=== PATIENT | female | born 1965 | race Caucasian/White ===

== ENCOUNTER 2018-10-16 18:56 | Inpatient (IN) ==
[2018-10-16 19:36] LABS: Pregnancy Test, Urine Negative (Negative)
[2018-10-16 19:39] LABS: Appearance Urine Clear (Clear); Bacteria Urine Automated Negative (Negative); Bilirubin Urine Negative (Negative); Blood Urine Negative (Negative); Cast Urine Automated 0 /lpf (0-5); Color Urine Yellow; Glucose Urine UA Negative (Negative); Ketones Urine Negative (Negative); Leukocyte Esterase Urine Trace (Negative); Nitrite Urine Negative (Negative); Protein Urine Negative (Negative); RBC Urine Automated 0-4 /hpf (0-4); Specific Gravity Urine 1.012 (1.000-1.030); Urobilinogen Urine Negative (Negative)
[2018-10-16 20:00] LABS: Basophils # (auto) 0.03 K/uL (0-0.2); Basophils % (auto) 0.4 %; Eosinophils # (auto) 0.06 K/uL (0-0.5); Eosinophils % (auto) 0.8 %; Hematocrit (blood only) 40.1 % (37-47); Hemoglobin 13.6 g/dL (12.0-16.0); Immature Granulocytes # (auto) 0.02 K/uL (0.00-0.02); Immature Granulocytes % (auto) 0.3 %; Lymphocytes % (auto) 49.1 %; Mean Corpuscular Hgb Conc 33.9 g/dL (32-36); Mean Corpuscular Volume 93.3 fL (80-100); Mean Platelet Volume 8.9 fL (7.4-10.4); Monocytes # (auto) 0.33 K/uL (0.11-0.59); Monocytes % (auto) 4.2 %; Neutrophils % (auto) 45.2 %; Platelet Count 401 K/uL (130-400); RDW Coefficient of Variation 12.8 % (11.5-14.5); RDW Standard Deviation 42.9 fL (36.4-46.3); White Blood Count 7.94 K/uL (4.8-10.8)
[2018-10-16 20:08] LABS: Amphetamines+Metham, Urine Neg (Neg); Barbiturates, Urine Neg (Neg); Benzodiazepine, Urine Neg (Neg); Cocaine, Urine Neg (Neg); MDMA (Ecstacy), Urine Neg (Neg); Methadone, Urine Neg (Neg); Opiate, Urine Neg (Neg); Phencyclidine, Urine Neg (Neg)
[2018-10-16 20:17] LABS: Albumin Level 4.3 gm/dl (3.4-5.0); BUN Creatinine Ratio 11.1 (10-20); Calcium 9.4 mg/dl (8.5-10.1); Creatinine Clr Calc Pharmacy 75.3 ml/min; Est GFR (African American) 96.9; Est GFR (Non-African American) 83.6
[2018-10-16 20:27] LABS: Albumin Globulin Ratio 1.1 (0.9-2); Bilirubin,Total 0.2 mg/dl (0.2-1); Total Protein 8.3 gm/dl (6.4-8.2)
[2018-10-16 20:53] LABS: Acetaminophen < 2 ug/ml (10-30); Salicylate < 1.7 mg/dl (2.8-20)
--- NOTE | 2018-10-16 23:25 | Emergency Department Note ---
Entered by Edna Laguna acting as a scribe for History of Present Illness General Chief Complaint: Mental Health Evaluation Stated Complaint: MHID, Time Seen by Provider: 10/16/18 19:03 Source: patient Mode of arrival: EMS Limitations: no limitations History of Present Illness Provider complaint: suicidal ideation Onset (ago): hour(s) (today) Duration: intermittent History of same: Yes (09/13/18) Exacerbated By: + alcohol Associated psychiatric symptoms: + depression; no homicidal ideation, no auditory hallucinations and no visual hallucinations Associated symptoms: + insomnia and + other (loss of appetite); no nausea and no vomiting If self harm: + admits thoughts of self harm and + has plan; no has acted on plan The patient is a 53 year old female with a past medical history of depression who presents to the Emergency Room with complaints of an intermittent suicidal ideation that got acutely worse today. The patient states that she does have a history of the same and explains that she tried to hang herself early last month. She notes that she was at a counseling appointment today where she made a comment that she has been having thoughts of cutting her wrists and that she "would rather not worry about anything." She reports that she did drink half a bottle of vodka today and admits to this exacerbating her thoughts. She states that this amount of alcohol is unusual for her. The patient also denies any HI or AVH. She notes that she has been unable to sleep and has had a loss of appetite but denies any nausea, vomiting or abdominal pain. She also denies any tobacco use. The patient denies overdosing on any of her medications or missing any doses. She denies having any access to guns. Home Medications Home Medications Medication Instructions Recorded Confirmed Type escitalopram oxalate 10 mg PO DAILY 10/16/18 10/16/18 History zolpidem 10 mg PO HS 10/16/18 10/16/18 History Past Med/Surg History Medical History Depression Social History Current Living Situation: Family Feels Safe at Home: Yes Smoking Status: Never smoker Hx Alcohol Use: Yes Review of Systems See HPI for pertinent positives & negatives. and A total of 10 systems reviewed and were otherwise negative Physical Exam Vital Signs Vital Signs - 24 hr 10/16/18 19:04 10/16/18 20:08 Temperature 36.8 C Temperature Source Oral Sepsis Recent Fever Within 48 Hours No Sepsis New/Unexplained Change in Mental Status No Sepsis Action Taken by Nursing No Action Required Pulse Rate 113 H Pulse Rate [Left Finger] 106 H Pulse Rhythm Regular Pulse Strength Normal Respiratory Rate 18 16 Respiratory Effort / Characteristics Non-Labored Non-Labored Spontaneous Respiratory Depth Normal Normal Respiratory Pattern Regular Regular Blood Pressure 125/74 Blood Pressure [Left Arm] 118/70 Blood Pressure Mean 91 Blood Pressure Mean [Left Arm] 86 Blood Pressure Position Lying Pulse Oximetry 95 97 Oxygen Delivery Method Room Air Room Air GENERAL: Well appearing, well nourished, NAD, non-toxic. EYE EXAM: Normal conjunctiva. PERRL, no anisocoria and EOM's grossly intact w/o pain. OROPHARYNX: Moist MM. NECK: Supple, no nuchal rigidity, no adenopathy, non-tender. No signs of meningismus. LUNGS: Clear to auscultation. Normal chest wall mechanics. HEART: NSR, no MRG. ABDOMEN: Abdomen soft, non-tender, normo-active bowel sounds, no masses, no rebound or guarding. BACK: No CVA TTP. SKIN: No rashes and no bruising. UPPER EXTREMITIES: Upper extremities are grossly normal. LOWER EXTREMITIES: No pitting edema. No calf pain. NEURO EXAM: A and O x3. GCS 15. Moves all 4 extremities on command w/o issue. PSYCH: Positive SI, no HI or AVH. Depressed mood. Course 1916: The patient was evaluated in room A5, and a complete history and physical examination were performed. 2109: Psych will be evaluating the patient. 2224: The patient was signed-out to Dr. Doll at the change of shifts. Administered Medications Medical Decision Making Home Medications Current Medication List: was personally reviewed by me Laboratory Data Attestation: I reviewed the patient's lab results. Result diagrams: 10/16/18 19:46 10/16/18 19:46 Lab Results 10/16/18 10/16/18 10/16/18 Range/Units 19:15 19:15 19:15 WBC (4.8-10.8) K/uL RBC (4.2-5.4) M/uL Hgb (12.0-16.0) g/dL Hct (37-47) % MCV (80-100) fL MCH (25-34) pg MCHC (32-36) g/dL RDW Std Deviation (36.4-46.3) fL RDW Coeff of Farhat (11.5-14.5) % Plt Count (130-400) K/uL MPV (7.4-10.4) fL Immature Gran % (Auto) % Neut % (Auto) % Lymph % (Auto) % Mcdonald % (Auto) % Eos % (Auto) % Baso % (Auto) % Immature Gran # (Auto) (0.00-0.02) K/uL Neut # (Auto) (1.4-6.5) K/uL Lymph # (Auto) (1.2-3.4) K/uL Mcdonald # (Auto) (0.11-0.59) K/uL Eos # (Auto) (0-0.5) K/uL Baso # (Auto) (0-0.2) K/uL Sodium (136-145) mmol/L Potassium (3.5-5.1) mmol/L Chloride (98-107) mmol/L Carbon Dioxide (21-32) mmol/L Anion Gap (3-11) BUN (7-18) mg/dl Creatinine (0.6-1.2) mg/dl Est Cr Clr Drug Dosing ml/min Est GFR ( Amer) Est GFR (Non-Af Amer) BUN/Creatinine Ratio (10-20) Glucose (70-99) mg/dl Calcium (8.5-10.1) mg/dl Total Bilirubin (0.2-1) mg/dl AST (15-37) U/L ALT (12-78) U/L Alkaline Phosphatase (45-117) U/L Total Protein (6.4-8.2) gm/dl Albumin (3.4-5.0) gm/dl Globulin (2.5-4.0) gm/dl Albumin/Globulin Ratio (0.9-2) TSH (0.300-4.500) uIu/ml Urine Color Yellow Urine Appearance Clear (Clear) Urine pH 5.0 (4.5-7.5) Ur Specific Haswell 1.012 (1.000-1.030) Urine Protein Negative (Negative) Urine Glucose (UA) Negative (Negative) Urine Ketones Negative (Negative) Urine Blood Negative (Negative) Urine Nitrite Negative (Negative) Urine Bilirubin Negative (Negative) Urine Urobilinogen Negative (Negative) Ur Leukocyte Esterase Trace H (Negative) Urine WBC (Auto) 1-5 (0-5) /hpf Urine RBC (Auto) 0-4 (0-4) /hpf U Hyaline Cast (Auto) 0 (0-5) /lpf U Epithel Cells (Auto) 10-20 H (0-5) /lpf Urine Bacteria (Auto) Negative (Negative) Urine Test Negative (Negative) Salicylates (2.8-20) mg/dl Urine Opiates Screen Neg (Neg) Ur Methadone, Qual Neg (Neg) Acetaminophen (10-30) ug/ml Urine Barbiturates Neg (Neg) Ur Phencyclidine (PCP) Neg (Neg) U Amphetamin/Meth Scrn Neg (Neg) MDMA (Ecstasy) Screen Neg (Neg) U Benzodiazepines Scrn Neg (Neg) Ur Cocaine Metabolite Neg (Neg) U Marijuana (THC) Screen Neg (Neg) Ethyl Alcohol mg/dL (0-3) mg/dl 10/16/18 10/16/18 10/16/18 Range/Units 19:46 19:46 19:46 WBC 7.94 (4.8-10.8) K/uL RBC 4.30 (4.2-5.4) M/uL Hgb 13.6 (12.0-16.0) g/dL Hct 40.1 (37-47) % MCV 93.3 (80-100) fL MCH 31.6 (25-34) pg MCHC 33.9 (32-36) g/dL RDW Std Deviation 42.9 (36.4-46.3) fL RDW Coeff of Farhat 12.8 (11.5-14.5) % Plt Count 401 H (130-400) K/uL MPV 8.9 (7.4-10.4) fL Immature Gran % (Auto) 0.3 % Neut % (Auto) 45.2 % Lymph % (Auto) 49.1 % Mcdonald % (Auto) 4.2 % Eos % (Auto) 0.8 % Baso % (Auto) 0.4 % Immature Gran # (Auto) 0.02 (0.00-0.02) K/uL Neut # (Auto) 3.60 (1.4-6.5) K/uL Lymph # (Auto) 3.90 H (1.2-3.4) K/uL Mcdonald # (Auto) 0.33 (0.11-0.59) K/uL Eos # (Auto) 0.06 (0-0.5) K/uL Baso # (Auto) 0.03 (0-0.2) K/uL Sodium 144 (136-145) mmol/L Potassium 4.0 (3.5-5.1) mmol/L Chloride 112 H (98-107) mmol/L Carbon Dioxide 24 (21-32) mmol/L Anion Gap 8.0 (3-11) BUN 9 (7-18) mg/dl Creatinine 0.80 (0.6-1.2) mg/dl Est Cr Clr Drug Dosing 75.3 ml/min Est GFR ( Amer) 96.9 Est GFR (Non-Af Amer) 83.6 BUN/Creatinine Ratio 11.1 (10-20) Glucose 93 (70-99) mg/dl Calcium 9.4 (8.5-10.1) mg/dl Total Bilirubin 0.2 (0.2-1) mg/dl AST 32 (15-37) U/L ALT 48 (12-78) U/L Alkaline Phosphatase 85 (45-117) U/L Total Protein 8.3 H (6.4-8.2) gm/dl Albumin 4.3 (3.4-5.0) gm/dl Globulin 4.0 (2.5-4.0) gm/dl Albumin/Globulin Ratio 1.1 (0.9-2) TSH 0.837 (0.300-4.500) uIu/ml Urine Color Urine Appearance (Clear) Urine pH (4.5-7.5) Ur Specific [place] (1.000-1.030) Urine Protein (Negative) Urine Glucose (UA) (Negative) Urine Ketones (Negative) Urine Blood (Negative) Urine Nitrite (Negative) Urine Bilirubin (Negative) Urine Urobilinogen (Negative) Ur Leukocyte Esterase (Negative) Urine WBC (Auto) (0-5) /hpf Urine RBC (Auto) (0-4) /hpf U Hyaline Cast (Auto) (0-5) /lpf U Epithel Cells (Auto) (0-5) /lpf Urine Bacteria (Auto) (Negative) Urine Test (Negative) Salicylates < 1.7 L (2.8-20) mg/dl Urine Opiates Screen (Neg) Ur Methadone, Qual (Neg) Acetaminophen < 2 L (10-30) ug/ml Urine Barbiturates (Neg) Ur Phencyclidine (PCP) (Neg) U Amphetamin/Meth Scrn (Neg) MDMA (Ecstasy) Screen (Neg) U Benzodiazepines Scrn (Neg) Ur Cocaine Metabolite (Neg) U Marijuana (THC) Screen (Neg) Ethyl Alcohol mg/dL (0-3) mg/dl 10/16/18 Range/Units 19:46 WBC (4.8-10.8) K/uL RBC (4.2-5.4) M/uL Hgb (12.0-16.0) g/dL Hct (37-47) % MCV (80-100) fL MCH (25-34) pg MCHC (32-36) g/dL RDW Std Deviation (36.4-46.3) fL RDW Coeff of Farhat (11.5-14.5) % Plt Count (130-400) K/uL MPV (7.4-10.4) fL Immature Gran % (Auto) % Neut % (Auto) % Lymph % (Auto) % Mcdonald % (Auto) % Eos % (Auto) % Baso % (Auto) % Immature Gran # (Auto) (0.00-0.02) K/uL Neut # (Auto) (1.4-6.5) K/uL Lymph # (Auto) (1.2-3.4) K/uL Mcdonald # (Auto) (0.11-0.59) K/uL Eos # (Auto) (0-0.5) K/uL Baso # (Auto) (0-0.2) K/uL Sodium (136-145) mmol/L Potassium (3.5-5.1) mmol/L Chloride (98-107) mmol/L Carbon Dioxide (21-32) mmol/L Anion Gap (3-11) BUN (7-18) mg/dl Creatinine (0.6-1.2) mg/dl Est Cr Clr Drug Dosing ml/min Est GFR ( Amer) Est GFR (Non-Af Amer) BUN/Creatinine Ratio (10-20) Glucose (70-99) mg/dl Calcium (8.5-10.1) mg/dl Total Bilirubin (0.2-1) mg/dl AST (15-37) U/L ALT (12-78) U/L Alkaline Phosphatase (45-117) U/L Total Protein (6.4-8.2) gm/dl Albumin (3.4-5.0) gm/dl Globulin (2.5-4.0) gm/dl Albumin/Globulin Ratio (0.9-2) TSH (0.300-4.500) uIu/ml Urine Color Urine Appearance (Clear) Urine pH (4.5-7.5) Ur Specific [place] (1.000-1.030) Urine Protein (Negative) Urine Glucose (UA) (Negative) Urine Ketones (Negative) Urine Blood (Negative) Urine Nitrite (Negative) Urine Bilirubin (Negative) Urine Urobilinogen (Negative) Ur Leukocyte Esterase (Negative) Urine WBC (Auto) (0-5) /hpf Urine RBC (Auto) (0-4) /hpf U Hyaline Cast (Auto) (0-5) /lpf U Epithel Cells (Auto) (0-5) /lpf Urine Bacteria (Auto) (Negative) Urine Test (Negative) Salicylates (2.8-20) mg/dl Urine Opiates Screen (Neg) Ur Methadone, Qual (Neg) Acetaminophen (10-30) ug/ml Urine Barbiturates (Neg) Ur Phencyclidine (PCP) (Neg) U Amphetamin/Meth Scrn (Neg) MDMA (Ecstasy) Screen (Neg) U Benzodiazepines Scrn (Neg) Ur Cocaine Metabolite (Neg) U Marijuana (THC) Screen (Neg) Ethyl Alcohol mg/dL 153.3 H (0-3) mg/dl Blood Pressure Blood Pressure Findings: Normal blood pressure Blood Pressure Disposition: did not require urgent referral MDM Narrative The patient is a 53 year old female with a past medical history of depression who presents to the Emergency Room with complaints of an intermittent suicidal ideation that got acutely worse today. Differential diagnosis includes: mood disorder, infection, hypoglycemia, electrolyte abnormalities, cardiac sources, intracerebral event, toxicologic, neurologic, as well as others. Patient presented with suicidal ideation while she had the patient does have a prior history of a recent attempted hanging. Patient is no longer employed. The patient has had worsening depression without any changes in medications and states she has been compliant with her meds. Patient denies taking prescribed medications or [id number] type medications in large quantities or not as prescribed. Patient denies HI or AVH. The patient did have blood work completed patient was subsequently deemed clinically sober and was seen by the psych case filler. The patient is currently a 201 but there is a 302 petition pending if the patient does try to leave. I did sign out the patient to the evening physician Dr. Doll pending psychiatric placement. Impression & Plan Depression with suicidal ideation, Alcohol cessation counseling Discharge Plan Visit Data Chief Complaint: Mental Health Evaluation Stated Complaint: MHID, ED Provider: Stevenson Galeano Discharge Problem: Depression with suicidal ideation, Alcohol cessation counseling Forms Stand Alone Forms: My [facility] Prescriptions Prescriptions: No Action zolpidem 10 mg tablet 10 mg PO HS RF: 0 escitalopram oxalate 10 mg tablet 10 mg PO DAILY RF: 0 The scribe's documentation has been prepared under my direction and personally reviewed by me in its entirety. I confirm that the note above accurately reflects all work, treatment, procedures, and medical decision making performed by me.
[2018-10-17] MEDS ORDERED: ZOLPIDEM TARTRATE 10 MG TAB PO STA (01:02)
--- NOTE | 2018-10-17 01:10 | Emergency Department Note ---
ED Visit Note I received this patient in signout at the change of shift from Dr. Stevenson Galeano. She was accepted to [facility] for inpatient psychiatric management. Patient requested her evening dose of Ambien 10 mg which was administered prior to her going upstairs. Please refer to Dr. Galeano's notes for further details of the history, physical and visit. .
[2018-10-17] MEDS ORDERED: BISMUTH SUBSALICYLATE PER ML OMNICELL CHARGE PO PRN (01:43)
[2018-10-17] MEDS ORDERED: ALUMINUM/MAGNESIUM SUSP 30 ML UDC PO PRN (01:43)
[2018-10-17] MEDS ORDERED: SODIUM CHLORIDE 0.65% NA SOLN 45 ML (OCEAN) PRN (01:43)
[2018-10-17] MEDS ORDERED: MAGNESIUM HYDROXIDE SUSP 30 ML UDC PO PRN (01:43)
[2018-10-17] MEDS ORDERED: ESCITALOPRAM OXALATE 10 MG TAB PO SCH (09:00)
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
[2018-10-17] MEDS ORDERED: SERTRALINE HCL 50 MG TABLET PO ONE (14:00)
[2018-10-18] MEDS: ACETAMINOPHEN 325 MG TAB PO PRN ×3 (01:02→19:48)
[2018-10-18] MEDS: SERTRALINE HCL 50 MG TABLET PO SCH (08:53)
--- NOTE | 2018-10-18 09:57 | Psychiatric Progress Note ---
Date of Service October 18, 2018 Impression / Recommendations Impression Patient reports mild improvement in mood since yesterday. She denies any specific concerns as far as side effects from initiation of sertraline. The patient does admit that she has not slept well and is continuing to struggle with her insomnia. We discussed trial of hydroxyzine dosing as needed tonight. She admits to trials of several other sleep aids, not finding any effective. Recommending CBTI to address her concerns regarding sleep. We will provide information for [facility], which has several providers to offer this service. Patient was encouraged to put her mental and physical health as a priority, and based on conversation today is motivated to do this. The patient denies active suicidality, improvement in mood has not been significant. She did complete a family meeting with her mother today, whom she will be living with after discharge. Patient 72-hour notice is up on 10/20 and she does not desire to rescind at this time. Given limited change in mood, recent reported suicide attempt, and the additional stressor of her moved from [place] to [place], patient continues to be at high risk of harm to self if discharged without adequate medication of risk factors or safety planning. Second attempt made today to contact patient's outpatient prescriber regarding overuse of zolpidem in combination with alcohol use. Received office's answering system which does not allow for messages to be left. (1) Depression with suicidal ideation: 10/17 - Patient reports at least 5 year history of depressive symptoms, managed by PCP, has never seen a psychiatrist. Had had trials of duloxetine and escitalopram, and would like to try something else. Discussed trial of sertraline, including review of risks, benefits, and possible side effects. Reviewed what to expect if it is working, and recommendations for therapy and referral for psychiatric care. She has applied for MA which will help with access to care. - Coordinate care with therapist. - Discontinue zolpidem - trial hydroxyzine and increase to 100mg as patient reports 50mg was poorly effective. She would benefit from sleep CBT. Coordinate care with Dr. Khoury, her PCP, as he is prescribing the zolpidem and should be aware of her drinking and overuse of the medication- called his office, which is apparently closed today, and was unable to leave a message. - The differential includes cluster B personality traits; get collateral information. - Encourage group attendance and participation. Work on healthy coping skills and a discharge safety plan. - Family meeting with parents and son, who is coming to town on Sunday. - Continue inpatient treatment; every 15 minute checks for safety. Patient has submitted a 72-hour notice, but is motivated to participate in treatment, and hopefully can be stabilized and discharged in that timeframe. 10/18 - Continue sertraline at 50mg for tomorrow morning, can titrate as tolerated - Family meeting with mother today, reportedly went well - Reviewed information about CBTI provided resources and contact for [facility] psychotherapy (2) Substance abuse: 10/17 - Abusing alcohol and zolpidem, will discontinue zolpidem and inform prescribing physician due to risk of overusing it, mixing with alcohol, as well as patient's report it was ineffective. - Brief intervention was offered and accepted Intervention was greater than 5 min in length. Brief interventions include: 1. Assess Readiness to Quit, 2. Advise: Help Patient to Reduce or Abstain from Alcohol, 3. Agree: Set Specific, Feasible Goals, 4. Assist: Anticipate barriers, Problem-Solving Solutions. Social work to 5. Arrange: Referrals to appropriate treatment. Summary of intervention: The patient is in precontemplation stage with regards to transtheoretical model of change. The patient is advised to decrease alcohol consumption due to depressant effects and risk of interactions with prescription medications. The patient agreed to cut back and not drink while depressed, and will be provided with recovery materials to continue to education self on how to cope with their condition without drinking. 10/18 -Additional attempts made today to contact patient's prescriber of zolpidem. Unable to leave message with the office. Inventory Assets Strengths: supportive family, willing for treatment Needs: abstinence from substances,, healthy coping skills, OP psychiatry Risk Factors Assessment Male: No : Yes Do You Have Access To A Gun?: No Health Problems: Yes Mental Health Diagnoses: Yes Substance Use Disorders: Yes Previous Attempt: Yes Previous Attempt; Highly Lethal: No Family History of Suicide: No Previous Psychiatric Hospitalization: No Hopelessness: No Smoker: No Protective Factors Assessment Mormon Beliefs: No : No Responsible for Young Children: No Employed: No (Unable to maintain employment due to depression) Stable Relationships: No Supportive Family: Yes Good Rapport with Provider: Yes Interval History Chief Complaint "Things are ok. Even though I'm tired, it's better than yesterday". Review of Systems Notes Constitutional: Reports excessive fatigue today Cardiovascular: denied Respiratory: denied Gastrointestinal: denied Neurological: denied Psychiatric: denies symptoms other than stated above Total of at least 10 systems reviewed, pertinent positives as above and in HPI. Sleep Information Total Hours of Sleep: 2.75 Meal Information Percent Meal Consumed - Breakfast: 90 Percent Meal Consumed - Lunch: 80 Percent Meal Consumed - Dinner: 50 Subjective Subjective Patient was seen & assessed and interval progress reviewed with Treatment Team. Staff reports the patient has been actively engaged in treatment on the unit. Patient required both doses of hydroxyzine at 100 mg last evening, and is still reported to have not slept well. Family meeting with her mother happened this morning. Patient is seen today to assess progress since admission. The patient shares with this provider that she did not sleep well last evening and is therefore tired today. She explains to this provider why her Ambien was held, and appears to understand that she was misusing the medication. She does admit that no medications have been successful at addressing her insomnia. We reviewed yesterday's recommendation from Dr. Delgadillo regarding cognitive behavioral therapy to target her insomnia. A specific resource will be provided to her to explore, as the program averages 6 sessions and she could remain with her current therapist to discuss her mental health concerns. Patient reports her mood is neutral saying "I am not sad or mad, I did say about a 6." She felt her meeting this morning went well, and has no concerns regarding moving in with her mother after she is able to obtain her belongings in [place]. The patient does admit that she feels a bit lost as her family dynamics are changing. She states, "all I have known as being a mother, and now my sons are growing up and wanting to explore their relationships." She does appear to be understanding of this, and is motivated to find ways to cope with this changing situation. Patient denies suicidality today, though admits there has not been a significant change in her mood. Physical Exam Psychiatric Orientation: alert, oriented x 3 and cooperative Apperance: appropriately dressed, appropriately groomed and appeared stated age Eye Contact: good eye contact Motor Behavior: steady gait and station and no abnormal motor movements Speech: normal rate/rhythm/volume of speech Affect: + anxious affect (mildly anxious) "not sad or mad, I'd say neutral. Not happy but better than yesterday." Thought Process: goal directed thought process and clear/coherent thought process Thought Content: reality based without delusions Suicidal Thoughts: denies suicidal thoughts Homicidal Thoughts: denies homicidal thoughts Cognition: recent memory grossly intact, remote memory grossly intact, attention grossly intact and language grossly intact Estimated Intelligence: average estimated intelligence Insight: + fair insight Judgement: + fair judgement Vital Signs (Past 24 Hours) Last Vital Signs Temp 36.7 C 10/18/18 06:00 Pulse 102 H 10/18/18 06:00 Resp 18 10/18/18 06:00 BP 126/73 10/18/18 06:00 Pulse Ox 99 10/17/18 01:51 Results & Data Current Inpatient Medications Current Inpatient Medications: Current Inpatient Medications Acetaminophen (Tylenol) 650 mg PO Q4H PRN PRN Reason: Headache or Minor Fever Stop: 11/16/18 01:42 Last Admin: 10/18/18 08:55 Dose: 650 mg Documented by: Al Hydrox/Mg Hydrox/Simethicone (Maalox) 30 ml PO Q4H PRN PRN Reason: GI Upset Stop: 11/16/18 01:42 Bismuth Subsalicylate (Kaopectate) 15 ml PO PRN PRN PRN Reason: Loose Stool Stop: 11/16/18 01:42 Hydroxyzine HCl (Vistaril) 25 mg PO Q4H PRN PRN Reason: Anxiety Stop: 11/16/18 01:42 Hydroxyzine HCl (Vistaril) 100 mg PO HSZ PRN PRN Reason: Insomnia Stop: 11/16/18 01:42 Last Admin: 10/18/18 01:03 Dose: 100 mg Documented by: Magnesium Hydroxide (Milk Of Magnesia) 30 ml PO DAILY PRN PRN Reason: Heartburn Stop: 11/16/18 01:42 Sertraline HCl (Zoloft) 50 mg PO QAM DAYAN Stop: 11/17/18 08:59 Last Admin: 10/18/18 08:53 Dose: 50 mg Documented by: Sodium Chloride ([place] Nasal) 1 - 2 sprays NA PRN PRN PRN Reason: Nasal Dryness/Congestion Stop: 11/16/18 01:42 Post Discharge Appointments Primary Care Physician Name Of Family Doctor: Dr. Dillon Khoury [facility] Name of Therapist: Guillermina Becerra's Office Date of Therapist Appointment: 10/30/18 [employer] Supervisor Name of [employer] Supervisor: None CPT Code CPT Code 84686
[2018-10-19] MEDS: ACETAMINOPHEN 325 MG TAB PO PRN (05:02)
[2018-10-19] MEDS: SERTRALINE HCL 50 MG TABLET PO SCH (08:58)
--- NOTE | 2018-10-19 10:10 | Psychiatric Progress Note ---
Date of Service October 19, 2018 Impression / Recommendations Impression Patient demonstrating improving hopefulness and absence of any recurrence of suicidal intentions. She seems to be minimizing psychiatric concerns today. Her 72-hour notice will come due tomorrow morning at 0745. As she has no minute plan or intent for self-harm, has demonstrated good behavioral control on the unit, and affect brightening, she does not meet involuntary commitment criteria and absence of imminent risk and will likely be discharged tomorrow. The patient was willing to rescind her 72-hour notice to accommodate a later discharge time tomorrow such that we could trial an alternative medication for sleep tonight as below. (1) Depression with suicidal ideation: 10/17 - Patient reports at least 5 year history of depressive symptoms, managed by PCP, has never seen a psychiatrist. Had had trials of duloxetine and escitalopram, and would like to try something else. Discussed trial of sertraline, including review of risks, benefits, and possible side effects. Reviewed what to expect if it is working, and recommendations for therapy and referral for psychiatric care. She has applied for MA which will help with access to care. - Coordinate care with therapist. - Discontinue zolpidem - trial hydroxyzine and increase to 100mg as patient reports 50mg was poorly effective. She would benefit from sleep CBT. Coordinate care with Dr. Khoury, her PCP, as he is prescribing the zolpidem and should be aware of her drinking and overuse of the medication- called his office, which is apparently closed today, and was unable to leave a message. - The differential includes cluster B personality traits; get collateral information. - Encourage group attendance and participation. Work on healthy coping skills and a discharge safety plan. - Family meeting with parents and son, who is coming to [facility] on Sunday. - Continue inpatient treatment; every 15 minute checks for safety. Patient has submitted a 72-hour notice, but is motivated to participate in treatment, and hopefully can be stabilized and discharged in that timeframe. 10/18 - Continue sertraline at 50mg for tomorrow morning, can titrate as tolerated - Family meeting with mother today, reportedly went well - Reviewed information about CBTI provided resources and contact for [facility] psychotherapy 10/19 -Start Remeron 15 mg p.o. nightly for mood augmentation, anxiolysis, and sleep benefit. Common risks and benefits reviewed including risk for appetite stimulation, dizziness, drowsiness. -Patient will rescind 72-hour notice but with plan to discharge tomorrow pending no problematic changes in clinical status -Patient does not have an appointment date with outpatient psychiatry however referral has been placed. We will request social work, at a minimum, try to obtain an appointment with PCP as she will require medication follow-up (2) Substance abuse: 10/17 - Abusing alcohol and zolpidem, will discontinue zolpidem and inform prescribing physician due to risk of overusing it, mixing with alcohol, as well as patient's report it was ineffective. - Brief intervention was offered and accepted Intervention was greater than 5 min in length. Brief interventions include: 1. Assess Readiness to Quit, 2. Advise: Help Patient to Reduce or Abstain from Alcohol, 3. Agree: Set Specific, Feasible Goals, 4. Assist: Anticipate barriers, Problem-Solving Solutions. Social work to 5. Arrange: Referrals to appropriate treatment. Summary of intervention: The patient is in precontemplation stage with regards to transtheoretical model of change. The patient is advised to decrease alcohol consumption due to depressant effects and risk of interactions with prescription medications. The patient agreed to cut back and not drink while depressed, and will be provided with recovery materials to continue to education self on how to cope with their condition without drinking. 10/18 -Additional attempts made today to contact patient's prescriber of zolpidem. Unable to leave message with the office. 10/19 -Again reviewed with patient that continued use of zolpidem is not recommended. Risks reviewed. Hopefully her sleep will respond to the Remeron as above. Also discussed consideration for short-term Seroquel trial however she can explore that potential option with her outpatient provider Inventory Assets Strengths: supportive family, willing for treatment Needs: abstinence from substances,, healthy coping skills, OP psychiatry Risk Factors Assessment Male: No : Yes Do You Have Access To A Gun?: No Health Problems: Yes Mental Health Diagnoses: Yes Substance Use Disorders: Yes Previous Attempt: Yes Previous Attempt; Highly Lethal: No Family History of Suicide: No Previous Psychiatric Hospitalization: No Hopelessness: No Smoker: No Protective Factors Assessment Islam Beliefs: No : No Responsible for Young Children: No Employed: No (Unable to maintain employment due to depression) Stable Relationships: No Supportive Family: Yes Good Rapport with Provider: Yes Interval History Chief Complaint "I am really feeling more hopeful". Review of Systems Sleep Information Total Hours of Sleep: 0.75 Meal Information Percent Meal Consumed - Breakfast: 50 Percent Meal Consumed - Lunch: 25 Percent Meal Consumed - Dinner: 90 denies constipation, dry mouth Subjective Subjective Patient was seen & assessed and interval progress reviewed with Treatment Team. Per staff, patient had a good day on the unit yesterday. Family meeting with her mother went well and her mother reportedly denied safety concerns and considering pending discharge from the behavioral health unit. She has been compliant with medication. She has not endorsed any continued suicidal ideation or intent here on the unit. She continues to complain of very poor sleep and a total of 200 mg of hydroxyzine last night was well tolerated but ineffective. She reports insomnia relatively persistently for several years. Has tried Belsomra and trazodone previously with PCP. She acknowledges overusing the Ambien but reports she had historically given the medication to her son to give to her and that system was more viable. She describes this seemingly suggesting that she could have her mother dispense the medication to her at home to reduce risk for overuse. She minimizes alcohol use and tells me that previous history in the record was incorrect and that she typically drinks only small quantities of alcohol perhaps monthly. Presently she reports difficult emotional adjustment to her youngest son's increased distance from her as he pursues a relationship. She states that she has always been very close to him and tells me that she made the suicidal threat "kind of to make him feel bad because I felt so hurt." She acknowledges the suicide attempt in September in [place] but characterizes it as something that she knew would fail as she tried to hang herself on a plastic plant hook. She does agree that the behavior is still concerning and evidences significant emotional duress. Presently she denies any continued thoughts or plans to harm herself or anyone else. She describes improving future orientation and hopes that she can feel good about being there to help her mother. The chronic pain that has limited her work is also a target of intervention and she reportedly has a rheumatology consultation pending from her PCP. She remains eager for discharge and her 72-hour notice will come due tomorrow morning at 07 45. Physical Exam Psychiatric Orientation: alert, oriented x 3 and cooperative Apperance: appropriately dressed and appropriately groomed Eye Contact: good eye contact Motor Behavior: steady gait and station and no abnormal motor movements Speech: no pressured speech (but hyperverbal at times) Affect: + anxious affect (mild); no tearful affect and no labile affect Mood: no depressed mood ("I'm hopeful") Thought Process: goal directed thought process Thought Content: reality based without delusions (minimizing) Suicidal Thoughts: denies suicidal thoughts, denies suicidal plan and denies s uicidal intent Homicidal Thoughts: denies homicidal thoughts Hallucinations: no auditory hallucinations, no visual hallucinations and no tactile hallucinations Cognition: recent memory grossly intact and remote memory grossly intact Estimated Intelligence: average estimated intelligence Insight: + fair insight Judgement: + fair judgement Vital Signs (Past 24 Hours) Last Vital Signs Temp 36.3 C L 10/19/18 06:45 Pulse 108 H 10/19/18 06:46 Resp 18 10/19/18 06:45 BP 112/78 10/19/18 06:46 Pulse Ox 99 10/17/18 01:51 Results & Data Current Inpatient Medications Current Inpatient Medications: Current Inpatient Medications Acetaminophen (Tylenol) 650 mg PO Q4H PRN PRN Reason: Headache or Minor Fever Stop: 11/16/18 01:42 Last Admin: 10/19/18 05:02 Dose: 650 mg Documented by: Al Hydrox/Mg Hydrox/Simethicone (Maalox) 30 ml PO Q4H PRN PRN Reason: GI Upset Stop: 11/16/18 01:42 Bismuth Subsalicylate (Kaopectate) 15 ml PO PRN PRN PRN Reason: Loose Stool Stop: 11/16/18 01:42 Hydroxyzine HCl (Vistaril) 25 mg PO Q4H PRN PRN Reason: Anxiety Stop: 11/16/18 01:42 Hydroxyzine HCl (Vistaril) 100 mg PO HSZ PRN PRN Reason: Insomnia Stop: 11/16/18 01:42 Last Admin: 10/18/18 23:25 Dose: 100 mg Documented by: Magnesium Hydroxide (Milk Of Magnesia) 30 ml PO DAILY PRN PRN Reason: Heartburn Stop: 11/16/18 01:42 Sertraline HCl (Zoloft) 50 mg PO QAM DAYAN Stop: 11/17/18 08:59 Last Admin: 10/19/18 08:58 Dose: 50 mg Documented by: Sodium Chloride ([place] Nasal) 1 - 2 sprays NA PRN PRN PRN Reason: Nasal Dryness/Congestion Stop: 11/16/18 01:42 Post Discharge Appointments Primary Care Physician Name Of Family Doctor: Dr. Dillon Khoury - follow up as needed Primary Care Provider Appointment Comment: [address] [place] [address] Psychiatrist Name of Psychiatrist: [facility] - referral faxed on 10/18 Psychiatrist's Psychiatric Appointment Comment: [address] [place] [address] Therapist Name of Therapist: Mary Anne Becerra PhD, [facility] Therapist's Date of Therapist Appointment: 10/30/18 Therapy Appointment Comment: [address] [place] [address] Public Defender Name of Public Defender: None Contact Information Discharge Discharge [address]: [address] [place] [address] [facility] [place] [address] CPT Code CPT Code 27336
[2018-10-19] MEDS ORDERED: MIRTAZAPINE TAB 15 MG TAB PO SCH (22:00)
[2018-10-20] MEDS: ACETAMINOPHEN 325 MG TAB PO PRN (05:03)
--- NOTE | 2018-10-20 08:49 | Discharge Summary ---
Date of Service October 20, 2018 History of Present Illness Patient presented to the ER 10/16/2018 via EMS with alcohol intoxication (BAL 153) and suicidal ideation. She reported worsening depression and worsening of suicidal ideation, which she had disclosed to her therapist, who referred her to the hospital. She reported an attempt to hang herself on 09/13/2018 with a phone cord, and thoughts of cutting her wrists. She reported drinking a half bottle of vodka prior to presentation, and said when she drinks, the suicidal thoughts get worse. Prior to coming into the hospital, she had picked up a knife, but then gave it to her mother and asked her to take it away from her. She also disclosed her suicidal thoughts to her son, who lives in [place], and either her son or mother called crisis. She was monitored in the ER until sober, and at that point admitted that she had been thinking of using razor blades to slice her wrists. Stressors include in the process of moving from [place] where her children are too [place] to live with her elderly parents. She admitted to attempting suicide on 09/13/2018, using a phone discharge rn cord as a noose. She wrapped it around her neck, stood on a table, and hooked the cord to the ceiling. She reported severe insomnia, for which she has been on zolpidem for years, taking up to 4-5 tabs at night without benefit. Although she has been advised to get a psychiatrist, she has not done so. She signed in voluntarily, but then submitted a 72-hour notice, stating she wanted to be discharged by Sunday because her son is coming up from [place]. She had been living in [place] with HER-2 sons and their girlfriends, but the house they were renting was sold and they had to move, so her sons asked her to move back to [place] to be with her parents. Her dog also in June 2018, which was difficult for her. She endorses feeling lonely and a lack of meaning in her life. She has been prescribed escitalopram and zolpidem by Dr. Dillon Khoury in [place], but does not feel that the escitalopram is helpful. On my assessment, the patient reports she has a history of depression since 2016, treated by a PCP, and has been depressed, "very sad," for the past month or so, and "I half attempted suicide last month in [place]." She describes the above event where she tried to hang herself with a phone discharge rn cord, which occurred when she was undergoing problems with her housing situation in [place], [place]. The house she and her 2 sons and their girlfriends were living in was going to be sold, and she was "so hurt" and upset when her youngest son and his girlfriend decided they wanted to get their own place, as "they know I can't afford it, and I can't work because of my pain." She was upset they "didn't think of me," and they had an argument about it. 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 She admits she had been drinking. She stood on a table, put the cord around her neck, and hung it to a hook in the ceiling. She stepped off the table, and "the ceiling fell through." She fell to the ground, and then sent a text to her older son, who came out and called 911. EMS came and took her to the ER, where she saw a psychiatrist, and was discharged home, as she refused inpatient treatment. Her sons drove her to [place] to live with her mother the next day, and she got a primary care doctor who started escitalopram, and she started therapy. She previously lived in [place] and saw the same PCP who prescribed duloxetine in the past. She was discussing this event with her therapist yesterday, and told her she'd had thoughts of ending her life, and "mentioned a razor." She denies that she had any intent to act on these thoughts, but says her therapist told her she should see a psychiatrist and get her medications adjusted. She then told her son about it on the phone last night, "and he and my mother got upset, and decided to call crisis." Mood has been "sad" for months, at least since Apr., "started getting the blues," and worsened when her dog in Jun. and then housing issues last month. Chronic pain is another exacerbating factor. She says she drinks "socially," but admits to drinking excessively at times. She denies manic, psychotic, PTSD, OCD, FRACISCO and panic symptoms. Physical Exam Psychiatric Orientation: alert, oriented x 3 and cooperative Apperance: appropriately dressed, appropriately groomed and appeared stated age Eye Contact: good eye contact Motor Behavior: steady gait and station; n tremor Speech: normal rate/rhythm/volume of speech Affect: euthymic affect Mood: no depressed mood (describes mood as "really good") Thought Process: goal directed thought process and linear/logical thought process Thought Content: reality based without delusions Suicidal Thoughts: denies suicidal thoughts, denies suicidal plan and denies suicidal intent Homicidal Thoughts: denies homicidal thoughts, denies homicidal plan and denies homicidal intent Hallucinations: no auditory hallucinations and no visual hallucinations Cognition: recent memory grossly intact and remote memory grossly intact Estimated Intelligence: average estimated intelligence Insight: + fair insight Judgement: + fair judgement Vital Signs (Past 24 Hours) Last Vital Signs Temp 36.7 C 10/20/18 06:35 Pulse 92 H 10/20/18 06:36 Resp 16 10/20/18 06:35 BP 122/86 10/20/18 06:36 Pulse Ox 99 10/17/18 01:51 Principal Diagnosis MDD, rec, severe, without psychosis; Alcohol/Sedative Hypnotic use disorder Psychiatric Data Day of Discharge Assessment On day of discharge patient reports that she finally slept perhaps 6 hours last evening with first dose of mirtazapine which was well tolerated. She denies dizziness or any concern for side effects so far this morning. With good sleep comes improved hopefulness. She denies any recurrence of suicidal thinking or wish. She denies thoughts of harm to anyone else. She is able to convincingly contract for safety and feels ready for discharge as we had planned today. She commits to alcohol abstinence and discontinuation of the Ambien. "I know that would set me back." She is amenable to outpatient follow-up and is aware that referral has been made for outpatient medication management however she will be required to call to establish time and date of intake appointment. She has therapy appointment scheduled as below and will follow up with her PCP as needed. Transition of Care Transition Of Care Record: was reviewed with the patient Advance Directives Advance Directives Information Provided: Yes Advance Directives: No Mental Health Advance Directive: No Advance Directives on File: No Living Will: No Power of Securities Consultant: No Advance Directives Reason:: Declines as Mental Health Visit. Risk Factors Assessment Male: No : Yes Do You Have Access To A Gun?: No Health Problems: Yes Mental Health Diagnoses: Yes Substance Use Disorders: Yes Previous Attempt: Yes Previous Attempt; Highly Lethal: No Family History of Suicide: No Previous Psychiatric Hospitalization: No Hopelessness: No Smoker: No Protective Factors Assessment Jainism Beliefs: No : No Responsible for Young Children: No Employed: No (Unable to maintain employment due to depression) Stable Relationships: No Supportive Family: Yes Good Rapport with Provider: Yes Tobacco Cessation at Discharge Tobacco Cessation Medication Prescribed at Discharge: Not Applicable/Non-Smoker Total Time Total Time Spent: Greater Than 30 Minutes Total Time Includes: Examination of the patient, Discharge Planning and Medication Reconciliation Discharge Data Lab Results 10/16/18 10/16/18 10/16/18 19:15 19:15 19:15 WBC RBC Hgb Hct MCV MCH MCHC RDW Std Deviation RDW Coeff of Farhat Plt Count MPV Immature Gran % (Auto) Neut % (Auto) Lymph % (Auto) [place] % (Auto) Eos % (Auto) Baso % (Auto) Immature Gran # (Auto) Neut # (Auto) Lymph # (Auto) [place] # (Auto) Eos # (Auto) Baso # (Auto) Sodium Potassium Chloride Carbon Dioxide Anion Gap BUN Creatinine Est Cr Clr Drug Dosing Est GFR ( Amer) Est GFR (Non-Af Amer) BUN/Creatinine Ratio Glucose Calcium Total Bilirubin AST ALT Alkaline Phosphatase Total Protein Albumin Globulin Albumin/Globulin Ratio TSH Urine Color Yellow Urine Appearance Clear Urine pH 5.0 Ur Specific [place] 1.012 Urine Protein Negative Urine Glucose (UA) Negative Urine Ketones Negative Urine Blood Negative Urine Nitrite Negative Urine Bilirubin Negative Urine Urobilinogen Negative Ur Leukocyte Esterase Trace H Urine WBC (Auto) 1-5 Urine RBC (Auto) 0-4 U Hyaline Cast (Auto) 0 U Epithel Cells (Auto) 10-20 H Urine Bacteria (Auto) Negative Urine Test Negative Salicylates Urine Opiates Screen Neg Ur Methadone, Qual Neg Acetaminophen Urine Barbiturates Neg Ur Phencyclidine (PCP) Neg U Amphetamin/Meth Scrn Neg MDMA (Ecstasy) Screen Neg U Benzodiazepines Scrn Neg Ur Cocaine Metabolite Neg U Marijuana (THC) Screen Neg Ethyl Alcohol mg/dL 10/16/18 10/16/18 10/16/18 19:46 19:46 19:46 WBC 7.94 RBC 4.30 Hgb 13.6 Hct 40.1 MCV 93.3 MCH 31.6 MCHC 33.9 RDW Std Deviation 42.9 RDW Coeff of Farhat 12.8 Plt Count 401 H MPV 8.9 Immature Gran % (Auto) 0.3 Neut % (Auto) 45.2 Lymph % (Auto) 49.1 [place]hin % (Auto) 4.2 Eos % (Auto) 0.8 Baso % (Auto) 0.4 Immature Gran # (Auto) 0.02 Neut # (Auto) 3.60 Lymph # (Auto) 3.90 H Da[place]hin # (Auto) 0.33 Eos # (Auto) 0.06 Baso # (Auto) 0.03 Sodium 144 Potassium 4.0 Chloride 112 H Carbon Dioxide 24 Anion Gap 8.0 BUN 9 Creatinine 0.80 Est Cr Clr Drug Dosing 75.3 Est GFR ( Amer) 96.9 Est GFR (Non-Af Amer) 83.6 BUN/Creatinine Ratio 11.1 Glucose 93 Calcium 9.4 Total Bilirubin 0.2 AST 32 ALT 48 Alkaline Phosphatase 85 Total Protein 8.3 H Albumin 4.3 Globulin 4.0 Albumin/Globulin Ratio 1.1 TSH 0.837 Urine Color Urine Appearance Urine pH Ur Specific [place] Urine Protein Urine Glucose (UA) Urine Ketones Urine Blood Urine Nitrite Urine Bilirubin Urine Urobilinogen Ur Leukocyte Esterase Urine WBC (Auto) Urine RBC (Auto) U Hyaline Cast (Auto) U Epithel Cells (Auto) Urine Bacteria (Auto) Urine Test Salicylates < 1.7 L Urine Opiates Screen Ur Methadone, Qual Acetaminophen < 2 L Urine Barbiturates Ur Phencyclidine (PCP) U Amphetamin/Meth Scrn MDMA (Ecstasy) Screen U Benzodiazepines Scrn Ur Cocaine Metabolite U Marijuana (THC) Screen Ethyl Alcohol mg/dL 10/16/18 19:46 WBC RBC Hgb Hct MCV MCH MCHC RDW Std Deviation RDW Coeff of Farhat Plt Count MPV Immature Gran % (Auto) Neut % (Auto) Lymph % (Auto) [place] % (Auto) Eos % (Auto) Baso % (Auto) Immature Gran # (Auto) Neut # (Auto) Lymph # (Auto) [place] # (Auto) Eos # (Auto) Baso # (Auto) Sodium Potassium Chloride Carbon Dioxide Anion Gap BUN Creatinine Est Cr Clr Drug Dosing Est GFR ( Amer) Est GFR (Non-Af Amer) BUN/Creatinine Ratio Glucose Calcium Total Bilirubin AST ALT Alkaline Phosphatase Total Protein Albumin Globulin Albumin/Globulin Ratio TSH Urine Color Urine Appearance Urine pH Ur Specific [place] Urine Protein Urine Glucose (UA) Urine Ketones Urine Blood Urine Nitrite Urine Bilirubin Urine Urobilinogen Ur Leukocyte Esterase Urine WBC (Auto) Urine RBC (Auto) U Hyaline Cast (Auto) U Epithel Cells (Auto) Urine Bacteria (Auto) Urine Test Salicylates Urine Opiates Screen Ur Methadone, Qual Acetaminophen Urine Barbiturates Ur Phencyclidine (PCP) U Amphetamin/Meth Scrn MDMA (Ecstasy) Screen U Benzodiazepines Scrn Ur Cocaine Metabolite U Marijuana (THC) Screen Ethyl Alcohol mg/dL 153.3 H Hospital Course (1) Depression with suicidal ideation: 10/17 - Patient reports at least 5 year history of depressive symptoms, managed by PCP, has never seen a psychiatrist. Had had trials of duloxetine and escitalopram, and would like to try something else. Discussed trial of sertraline, including review of risks, benefits, and possible side effects. Reviewed what to expect if it is working, and recommendations for therapy and referral for psychiatric care. She has applied for [place] which will help with access to care. - Coordinate care with therapist. - Discontinue zolpidem - trial hydroxyzine and increase to 100mg as patient reports 50mg was poorly effective. She would benefit from sleep CBT. Coordinate care with Dr. Khoury, her PCP, as he is prescribing the zolpidem and should be aware of her drinking and overuse of the medication- called his office, which is apparently closed today, and was unable to leave a message. - The differential includes cluster B personality traits; get collateral information. - Encourage group attendance and participation. Work on healthy coping skills and a discharge safety plan. - Family meeting with parents and son, who is coming to town on Sunday. - Continue inpatient treatment; every 15 minute checks for safety. Patient has submitted a 72-hour notice, but is motivated to participate in treatment, and hopefully can be stabilized and discharged in that timeframe. 10/18 - Continue sertraline at 50mg for tomorrow morning, can titrate as tolerated - Family meeting with mother today, reportedly went well - Reviewed information about [facility] provided resources and contact for [facility] psych[facility] 10/19 -Start Remeron 15 mg p.o. nightly for mood augmentation, anxiolysis, and sleep benefit. Common risks and benefits reviewed including risk for appetite stimulation, dizziness, drowsiness. -Patient will rescind 72-hour notice but with plan to discharge tomorrow pending no problematic changes in clinical status -Patient does not have an appointment date with outpatient psychiatry however referral has been placed. We will request social work, at a minimum, try to obtain an appointment with PCP as she will require medication follow-up (2) Substance abuse: 10/17 - Abusing alcohol and zolpidem, will discontinue zolpidem and inform prescribing physician due to risk of overusing it, mixing with alcohol, as well as patient's report it was ineffective. - Brief intervention was offered and accepted Intervention was greater than 5 min in length. Brief interventions include: 1. Assess Readiness to Quit, 2. Advise: Help Patient to Reduce or Abstain from Alcohol, 3. Agree: Set Specific, Feasible Goals, 4. Assist: Anticipate barriers, Problem-Solving Solutions. Social work to 5. Arrange: Referrals to appropriate treatment. Summary of intervention: The patient is in precontemplation stage with regards to transtheoretical model of change. The patient is advised to decrease alcohol consumption due to depressant effects and risk of interactions with prescription medications. The patient agreed to cut back and not drink while depressed, and will be provided with recovery materials to continue to education self on how to cope with their condition without drinking. 10/18 -Additional attempts made today to contact patient's prescriber of zolpidem. Unable to leave message with the office. 10/19 -Again reviewed with patient that continued use of zolpidem is not recommended. Risks reviewed. Hopefully her sleep will respond to the Remeron as above. Also discussed consideration for short-term Seroquel trial however she can explore that potential option with her outpatient provider Post Discharge Appointments Primary Care Physician Name Of Family Doctor: Dr. Dillon Khoury - follow up as needed Primary Care Provider Appointment Comment: [phone] [place] [id number] Psychiatrist Name of Psychiatrist: [facility] - referral faxed on 10/18 Psychiatrist's Psychiatric Appointment Comment: [id number] [place] [address] Therapist Name of Therapist: Mary Anne Becerra PhD, [facility] Therapist's Date of Therapist Appointment: 10/30/18 Therapy Appointment Comment: [address] [place] [address] Executive Vice President Business Development Name of Executive Vice President Business Development: None Smoking Cessation Counseling Tobacco Cessation Medication Prescribed at Discharge: Not Applicable/Non-Smoker Contact Information Discharge Discharge [address] [facility] [facility] [place] [address] Discharge Plan Discharge Items Reason For Visit: mdd Discharge Diagnosis: Depression, suicidal ideation, sedative abuse Condition: Good Discharge Goals: Learn about illness and Specific goals Specific Goals: resolve si, abstain from substance abuse Activity: Resume your previous activity Non-emergency contact: Primary Care Provider, Psychiatrist and Therapist Call non-emergency contact if: you have any medication questions and your symptoms worsen Follow-up/Referrals: Dillon Khoury [Primary Care Provider] - Diet: Regular Addtl Provider Instructions: lexapro and ambien have been discontinued. you are now treated with zoloft and remeron. Prescriptions: New mirtazapine 15 mg Tablet 15 mg PO HS Qty: 30 RF: 0 sertraline 50 mg Tablet 50 mg PO QAM Qty: 30 RF: 0 Discontinued zolpidem 10 mg tablet 10 mg PO HS RF: 0 escitalopram oxalate 10 mg tablet 10 mg PO DAILY RF: 0 Admission Data Admit Date/Time: 10/17/18 01:43 Attending Provider: Yue Delgadillo Admit Provider: Rajni Gonzales Primary Care Provider: Dillon Khoury Service: Psychiatry Other Interventions: PSY Interdisciplinary Discharge Planning Last Done: 10/18/18 11:43 Pending Studies at Discharge: No
[2018-10-20] MEDS: SERTRALINE HCL 50 MG TABLET PO SCH (09:48)
== END 2018-10-20 10:40 | disposition home or self-care (01) | DRG 885 ==
LOC: ED 18:56 → 3S 10-17 01:43